=== PATIENT | male | born 1960 | race Caucasian/White ===

== ENCOUNTER → 2016-08-24 | Outpatient (CLI) | payer BC ==
[~2016-08-24] MED LIST: ALTACE PO; ASPIRIN325 PO; CARVEDILOL3.125 MG PO; EFFIENT10 MG PO; SIMVASTATIN40 MG PO
--- NOTE | ~2016-08-24 | 2DMMODE ---
[facility] [employer] [place] [address] 2 D/M-MODE ECHOCARDIOGRAM Name: JOSE JUAN AGUERO Room #: REG CL [facility]#: [id number] Admission: 08/24/16 Attend Phys: Kolton Doty MD Discharge: Date of : 64 Date of Service: 08/24/16 1042 Report #: [id number] THIS REPORT FOR: //name// APPROVED REPORT Study performed: 08/24/2016 09:20:54 EXAM: Comprehensive 2D, Doppler, and color-flow Echocardiogram Patient Location: Out-Patient Room #: Echo2 Blood Pressure: 114/82 mmHg HR: 69 bpm Other Information Study Quality: Good Indications CAD Hypertension/HDD Echo Enhancing Agent Indication: Rule out Shunt Agent/Amount Used: Agitated Saline 7 cc Comments: Definity was used to rule out apical thrombus. 2D Dimensions RVDd: 30.73 mm LVEF(%): 37.70 (>50%) IVSd: 4.55 (7-11mm) LVOT Diam: 19.66 (18-24mm) LVDd: 47.21 mm PWd: 6.88 (7-11mm) Ascending Ao: 28.19 (22-36mm) LVDs: 38.63 (25-40mm) Aortic Root: 28.84 mm IVC: 13.00 mm Bennett's LVEF: 37.70 % Volumes Left Atrial Volume (Systole) Single Plane 4CH: 26.46 mL Single Plane 2CH: 25.38 mL LA ESV Index: 17.00 mL/m2 Aortic Valve AoV Peak Jacobo.: 0.95 m/s [facility] [address] [place] [address] 2 D/M-MODE ECHOCARDIOGRAM Name: JOSE JUAN AGUERO Room #: REG CL [facility]#: [id number] Admission: 08/24/16 Attend Phys: Kolton Doty MD Discharge: Date of : 64 Date of Service: 08/24/16 1042 Report #: [id number] AO Peak Gr.: 3.59 mmHg LVOT Max P.89 mmHg LVOT Max V: 0.85 m/s RUFINA Vmax: 2.72 cm2 Mitral Valve E/A Ratio: 1.3 MV Decel. Time: 157.10 ms MV E Max Jacobo.: 0.89 m/s MV A Jacobo.: 0.69 m/s MV PHT: 45.56 ms IVRT: 92.27 ms Pulmonary Valve PV Peak Jacobo.: 0.71 m/s PV Peak Gr.: 1.99 mmHg Pulmonary Vein P Vein S: 54.2 m/s P Vein A: 24.87 m/s P Vein D: 54.9 m/s P Vein A Dur.: 87.7 msec Tricuspid Valve RAP Estimate: 5.00 mmHg Left Ventricle The left ventricle is normal size. There is akinesis in the apical wall. There is akinesis in the septal and inferior faustin. There is normal left ventricular wall thickness. Left ventricular ejection fraction is moderate to severely decreased. LVEF is 30-35%. The left ventricular diastolic function is normal. Right Ventricle The right ventricle is normal size. The right ventricular systolic function is normal. Atria The left atrium size is normal. The right atrium size is normal. Aortic Valve Aortic valve is calcified. No aortic regurgitation is present. There is no aortic valvular stenosis. Mitral Valve The mitral valve is normal in structure. Mild mitral regurgitation. No evidence of mitral valve stenosis. Tricuspid Valve [facility] [address] [place] [address] 2 D/M-MODE ECHOCARDIOGRAM Name: JOSE JUAN AGUERO Room #: REG CL [facility]#: [id number] Admission: 08/24/16 Attend Phys: Kolton Doty MD Discharge: Date of : 64 Date of Service: 08/24/16 1042 Report #: [id number] The tricuspid valve is normal in structure. There is trace tricuspid regurgitation. The right atrial pressure is estimated at 5 mmHg. There is no pulmonary hypertension. Pulmonic Valve The pulmonary valve is normal in structure. Trace pulmonic regurgitation. Great Vessels The aortic root is normal in size. IVC is normal in size and collapses >50% with inspiration. Pericardium There is no pericardial effusion. <Conclusion> Left ventricular ejection fraction is moderate to severely decreased. There is akinesis in the septal and inferior faustin. LVEF is 30-35%. Aortic valve is calcified. There is no aortic valvular stenosis or insufficiency. The mitral valve is normal in structure. Mild mitral regurgitation. There is no pericardial effusion. <ELECTRONICALLY SIGNED> By: Rishi Chadwick MD, [facility] 08/24/16 1042 [id number] Rishi Chadwick MD, FAC /INF
== END ==
LOC: CV 06:49
DX: I25.10 Atherosclerotic heart disease of native coronary artery without angina pectoris (principal)

== ENCOUNTER 2016-09-03 06:29 | Observation (INO) | payer BC ==
[~2016-09-03] VITALS: Ht 170.2 cm; Wt 68.0 kg
--- NOTE | ~2016-09-03 | H ---
[facility] [address] [address] [place] [address] HISTORY AND PHYSICAL Name: MELISSAJOSE JUAN SIBLEY Room #: 202-P [facility] Liana MKalRKal#: [id number] Admission: 09/03/16 Attend Phys: Wander Wiley MD Discharge: 09/04/16 Date of : 64 Report #: [id number] THIS REPORT FOR: //name// For History and Physical, please see office documentation/handwritten note in the patient's medical record. <ELECTRONICALLY SIGNED> By: Wander Wiley MD 09/14/16 0831 0854 Wander Wiley MD /
--- NOTE | ~2016-09-03 | D ---
[facility] [place] [address] DISCHARGE SUMMARY Name: JOSE JUAN AGUERO Room #: 202-P [facility] Dennis#: [id number] Admission: 09/03/16 Attend Phys: Wander Wiley MD Discharge: Date of : 64 Report #: [id number] THIS REPORT FOR: //name// CC: PATRICE physician/PCP Kolton Wiley FINAL DIAGNOSES: 1. Status post prophylactic ICD implant. 2. Coronary artery disease, myocardial infarction, coronary artery bypass grafting. 3. Ischemic cardiomyopathy, EF in the 30-35% range. 4. Hypertension. 5. Hypercholesterolemia. 6. CVA, probable embolic on warfarin therapy. HOSPITAL COURSE: Please see the original H and P for full details. The patient with known history of CA, CABG, and ischemic cardiomyopathy, presented for elective ICD implant. This was performed by Dr. Wander Wiley. He has remained hemodynamically stable overnight. On the monitor, no ventricular arrhythmias were noted. The insertion site looks clean without any signs of infection. He is stable for discharge and will continue on aspirin once a day, atorvastatin 40 mg daily, lisinopril 5 mg, warfarin as directed and Coreg 12.5 twice a day. <ELECTRONICALLY SIGNED> By: Kolton Doty MD 09/04/16 1027 0827 0844 Kolton Doty MD /ana paula
--- NOTE | ~2016-09-03 | P ---
[facility] [place] [address] PROCEDURE REPORT Name: JOSE JUAN AGUERO Room #: 202-P [employer] M.RKal#: [id number] Admission: 09/03/16 Attend Phys: Wander Wiley MD Discharge: Date of : 64 Report #: [id number] THIS REPORT FOR: //name// CC: PATRICE physician/PCP Kolton Wiley DATE OF SERVICE: 09/03/2016 PROCEDURE: ICD implant. PREOPERATIVE DIAGNOSIS: Ischemic cardiomyopathy. POSTOPERATIVE DIAGNOSIS: Ischemic cardiomyopathy. HISTORY: The patient is a 56-year-old with history of coronary artery disease status post recent CABG who has been on optimal medical therapy for 3 months and his EF remains 30-35%, who is here for ICD implantation for primary prevention of sudden cardiac . ANESTHESIA: The patient underwent MAC anesthesia with no anesthesia related complications. DESCRIPTION OF PROCEDURE: The patient underwent informed consent. We discussed the details of the procedure including the risk, which include, but not limited to bleeding, infection, vascular damage, cardiac perforation, pneumothorax. He understood these risks and was willing to proceed. He was brought to the EP laboratory in fasting and sedated state, prepped and draped in sterile fashion, underwent a venogram showing patency of the left axillary vein and received antibiotics prior to initiation of the procedure. Next, I injected 20 mL of lidocaine below the level of clavicle. Incision was made. Pocket was created over the prepectoral fashion, and access obtained once to the left axillary vein using the extrathoracic approach with the sheath positioned using the modified Seldinger technique. A lead was positioned at the right ventricular apex with adequate pacing and sensing thresholds. The lead was sutured to the prepectoral fascia. The device was connected, placed in the pocket, and the pocket was irrigated with vancomycin, and the pocket was closed in 3 layers, and surgical glue was placed to the skin. The patient awoke neurologically and hemodynamically intact. No complications. No significant bleeding. The defibrillator was a [employer] model # [id number], serial [id number] with an RV lead that was a [employer] model #7122Q 58 cm, single coil, serial # [id number]. The R waves were greater than 12, pacing impedance 650 ohms, and the pacing threshold 0.75 volts at 0.5 milliseconds. The device was programmed to VVI 40 with a VT zone at 180 and a VF zone at greater than 220. [facility] [address] [place] [address] PROCEDURE REPORT Name: JOSE JUAN AGUERO Room #: 202-P [facility] Liana Collins#: [id number] Admission: 09/03/16 Attend Phys: Wander Wiley MD Discharge: Date of : 64 Report #: [id number] CONCLUSIONS: 1. Successful ICD implant. 2. Satisfactory right ventricular pacing and sensing thresholds. By: [id number] /
[2016-09-03] MEDS ORDERED: ATORVASTATIN CA40 MG PO (06:53)
[2016-09-03] MEDS ORDERED: ZESTRIL5 MG PO (06:53)
[2016-09-03] MEDS ORDERED: COUMADIN 2 MG TA2 M1 PO (06:54)
[2016-09-03] MEDS ORDERED: CARVEDILOL12.5 MG PO (07:00)
[2016-09-03 07:02] VITALS: BP 115/67
[2016-09-03 07:34] LABS: ABSOLUTE NEUTROPHILS 4.2 thou/uL (1.4-8.2); BASOPHILS 1.1 % (0.0-2.0); EOSINOPHILS 5.2 % (0.0-3.0); HEMOGLOBIN 14.3 gm/dL (14.0-18.0); LYMPHOCYTES 29.2 % (24.0-44.0); MCH 28.8 pg (26.0-34.0); MCV 84.5 fL (80.0-100.0); MONOCYTES 10.4 % (1.0-8.0); PLATELET COUNT 291 thou/uL (150-400); POLYS 54.1 % (36.0-66.0); RBC 4.97 mil/uL (4.50-6.00); RDW 15.4 % (10.5-14.5); WBC 7.7 thou/uL (4.0-11.0)
[2016-09-03 07:38] LABS: MANUAL DIFF NO
[2016-09-03 07:45] LABS: CREATININE 1.1 mg/dL (0.7-1.3); POTASSIUM 4.4 mmol/L (3.5-5.1)
[2016-09-03 07:48] LABS: INR 1.5
[2016-09-03 07:49] LABS: PROTIME 15.8 Seconds (9.3-11.4)
[2016-09-03 07:51] LABS: ALBUMIN 3.8 g/dL (3.4-5.0); TOTAL BILIRUBIN 0.4 mg/dL (<0.1-1.0); TOTAL PROTEIN 7.3 g/dL (6.4-8.2)
[2016-09-03 11:10] VITALS: BP 109/79
[2016-09-03 15:25] VITALS: BP 111/73
[2016-09-03 19:39] VITALS: BP 115/73
[2016-09-04 01:14] VITALS: BP 11/79; BP 117/79
[2016-09-04 04:14] VITALS: BP 98/69
[2016-09-04 07:30] VITALS: BP 122/87
[2016-09-04 10:13] VITALS: BP 122/87
== END 2016-09-04 11:06 | disposition home or self-care (01) ==
LOC: CATH 06:29 → CV 09:11 → 2N 11:08 → CV 11:26 → 2N 09-04 11:06
PROVIDERS: Internal Medicine Cardiovascular Disease
DX: I25.5 Ischemic cardiomyopathy (principal); I10 Essential (primary) hypertension; I25.810 Atherosclerosis of coronary artery bypass graft(s) without angina pectoris; E78.00 Pure hypercholesterolemia, unspecified

== ENCOUNTER → 2017-11-29 | Outpatient (CLI) | payer BC ==
[~2017-11-29] MED LIST changes: +ATORVASTATIN CA40 MG PO; +CARVEDILOL12.5 MG PO; +COUMADIN 2 MG TA2 M1 PO; +ZESTRIL5 MG PO
--- NOTE | ~2017-11-29 | 2DMMODE ---
[facility] [place] [employer] [address] 2 D/M-MODE ECHOCARDIOGRAM Name: JOSE JUAN AGUERO Room #: REG CL [facility]#: [id number] Admission: 11/29/17 Attend Phys: Kolton Doty MD Discharge: Date of : 64 Date of Service: 11/29/17 1317 Report #: [id number] THIS REPORT FOR: //name// APPROVED REPORT Study performed: 11/29/2017 10:59:47 EXAM: Comprehensive 2D, Doppler, and color-flow Echocardiogram Patient Location: Out-Patient Status: routine BSA: 1.76 HR: 72 bpm BP: 108/76 mmHg Rhythm: NSR Other Information Study Quality: Adequate Indications Ischemic cardiomyopathy. Hx: NC, CABG, ICD, HTN, HLP, CVA 2D Dimensions RVDd: 38.16 mm LVEF(%): 36.67 (>50%) IVSd: 6.78 (7-11mm) LVOT Diam: 21.36 (18-24mm) LVDd: 46.52 mm PWd: 8.15 (7-11mm) Ascending Ao: 33.04 (22-36mm) LVDs: 38.34 (25-40mm) Aortic Root: 33.17 mm Bennett's LVEF: 36.67 % Volumes Left Atrial Volume (Systole) Single Plane 4CH: 24.17 mL Single Plane 2CH: 30.89 mL LA ESV Index: 17.00 mL/m2 Aortic Valve AoV Peak Jacobo.: 0.99 m/s AO Peak Gr.: 3.95 mmHg LVOT Max P.61 mmHg LVOT Max V: 0.81 m/s RUFINA Vmax: 2.91 cm2 Mitral Valve E/A Ratio: 0.7 MV Decel. Time: 218.24 ms [facility] [place] [employer] [place] [address] 2 D/M-MODE ECHOCARDIOGRAM Name: JOSE JUAN AGUERO Room #: REG [facility].#: [id number] Admission: 11/29/17 Attend Phys: Kolton Doty MD Discharge: Date of : 64 Date of Service: 11/29/17 1317 Report #: [id number] E Max Jacobo.: 0.54 m/s MV A Jacobo.: 0.75 m/s MV PHT: 63.29 ms IVRT: 128.03 ms Pulmonary Valve PV Peak Jacobo.: 0.56 m/s PV Peak Gr.: 1.25 mmHg Pulmonary Vein P Vein S: 0.48 m/s P Vein D: 0.38 m/s P Vein S/D Ratio: 1.26 Tricuspid Valve TR Peak Jacobo.: 2.30 m/s RAP Estimate: 5.00 mmHg TR Peak Gr.: 21.13 mmHg PA Pressure: 26.00 mmHg Left Ventricle The left ventricle is normal size. There is normal left ventricular wall thickness. Left ventricular systolic function is moderate to severely decreased. LVEF is 30-35%. Mild diastolic dysfunction is present (impaired relaxation pattern). Right Ventricle The right ventricle is normal size. The right ventricular systolic function is normal. Device lead is present in the right ventricle. Atria The left atrium size is normal. The right atrium size is normal. Aortic Valve Aortic valve is trileaflet and mildly calcified. No aortic regurgitation is present. There is no aortic valvular stenosis. Mitral Valve The mitral valve is normal in structure. Trace to mild mitral regurgitation. Tricuspid Valve The tricuspid valve is normal in structure. Mild tricuspid regurgitation. Estimated PAP is 25-30mmHg. Pulmonic Valve [address] [address] 2 D/M-MODE ECHOCARDIOGRAM Name: JOSE JUAN AGUERO Room #: REG CL [facility]#: [id number] Admission: 11/29/17 Attend Phys: Kolton Doty MD Discharge: Date of : 64 Date of Service: 11/29/17 1317 Report #: [id number] The pulmonary valve is normal in structure. Trace pulmonic regurgitation. Great Vessels The aortic root is normal in size. The ascending aorta is normal in size. IVC is normal in size and collapses >50% with inspiration. Pericardium There is no pericardial effusion. <Conclusion> The left ventricle is normal size. There is normal left ventricular wall thickness. Left ventricular systolic function is moderate to severely decreased. LVEF is 30-35%. Mild diastolic dysfunction is present (impaired relaxation pattern). The right ventricle is normal size. Device lead is present in the right ventricle. The left atrium size is normal. Aortic valve is trileaflet and mildly calcified. There is no aortic valvular stenosis. Trace to mild mitral regurgitation. Mild tricuspid regurgitation. Estimated PAP is 25-30mmHg. <ELECTRONICALLY SIGNED> By: Kolton Doty MD 11/29/177 16 16 Kolton Doty MD /INF
== END ==
LOC: CV 09:16
DX: I35.8 Other nonrheumatic aortic valve disorders (principal); I07.1 Rheumatic tricuspid insufficiency; I25.5 Ischemic cardiomyopathy; I10 Essential (primary) hypertension; E78.5 Hyperlipidemia, unspecified; Z95.1 Presence of aortocoronary bypass graft

== ENCOUNTER → 2018-12-01 | Outpatient (CLI) | payer BC | LOC: NUC 07:38 | DX: I25.10 Atherosclerotic heart disease of native coronary artery without angina pectoris (principal); I25.5 Ischemic cardiomyopathy; Z88.8 Allergy status to other drugs, medicaments and biological substances; E78.5 Hyperlipidemia, unspecified; I10 Essential (primary) hypertension; I25.2 Old myocardial infarction; Z95.0 Presence of cardiac pacemaker; Z79.899 Other long term (current) drug therapy ==

== ENCOUNTER → 2019-12-06 | Outpatient (CLI) | payer BC | LOC: SJCVCIMAG 09:30 | PROVIDERS: ATTEND Internal Medicine Cardiovascular Disease | DX: I08.2 Rheumatic disorders of both aortic and tricuspid valves (principal); I42.9 Cardiomyopathy, unspecified; I25.10 Atherosclerotic heart disease of native coronary artery without angina pectoris; I25.2 Old myocardial infarction; Z95.1 Presence of aortocoronary bypass graft; Z95.810 Presence of automatic (implantable) cardiac defibrillator ==

== ENCOUNTER → 2020-06-10 | Outpatient (CLI) | payer BC | LOC: SJCVCIMAG 07:54 | PROVIDERS: ATTEND Internal Medicine Cardiovascular Disease | DX: R00.0 Tachycardia, unspecified (principal); I25.10 Atherosclerotic heart disease of native coronary artery without angina pectoris; I25.5 Ischemic cardiomyopathy; I25.2 Old myocardial infarction; R10.9 Unspecified abdominal pain; R06.00 Dyspnea, unspecified; R42 Dizziness and giddiness; Z79.899 Other long term (current) drug therapy; Z79.82 Long term (current) use of aspirin; Z88.5 Allergy status to narcotic agent; Z95.1 Presence of aortocoronary bypass graft ==